=== PATIENT | male | born 1955 | race Caucasian/White ===

== ENCOUNTER 2025-11-08 05:55 | Day surgery (SDC) | payer BC, MEDICARE ==
[~2025-11-08 05:55] MED LIST: EPINEPHrine 0.3 MG in Ophthalmic Irrigation Solution 500 ML IRR SCH
[2025-11-08] MEDS ORDERED: Cyclopentolate 1% Opth Drop 2 ML BOT ONE (06:17)
[2025-11-08] MEDS ORDERED: PROPOFOL 20 ML ONE (07:57)
[2025-11-08] MEDS ORDERED: Lidocaine 1% PF 5 ML VIAL ONE (08:33)
[2025-11-08] MEDS ORDERED: CEFAZOLIN 1 GM VIAL ONE (08:33)
[2025-11-08] MEDS ORDERED: Lidocaine 4% PF 5 ML AMP ONE (08:33)
[2025-11-08] MEDS ORDERED: Maxitrol 0.1% Opth Oint 3.5 GM TUBE ONE (08:33)
== END 2025-11-08 09:48 | disposition home or self-care (01) ==
LOC: SDC 05:55
PROVIDERS: ATTEND Ophthalmology Retina Specialist
PROC: 08B53ZZ Excision of Left Vitreous, Percutaneous Approach (ICD-10-PCS; principal; 2025-11-08)
DX: H35.372 Puckering of macula, left eye (principal)
CPT/HCPCS: 36416; J0166; J0690; J2003; J2250; J2704; J3010; J3301; J3490